=== PATIENT | female | born 2000 | race Caucasian/White ===

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

== ENCOUNTER 2018-11-07 17:11 | Emergency (ER) | payer OTHER ==
[2018-11-07 17:29] VITALS: BP 118/76
--- NOTE | 2018-11-07 18:09 | EDPHY ---
H & P Stated Complaint: BLURRY VISION, FORGETTING TO SPELL,WINKLER, HIT HEAD AND VOMIT-SAT Source: Patient Exam Limitations: No limitations - Personal History LMP (Females 10-55): Extended Cycle BCP/Inj Current Tetanus/Diphtheria Vaccine: Yes - Medical/Surgical History Hx Asthma: No Hx Chronic Respiratory Disease: No Hx Diabetes: No Hx Cardiac Disease: No Hx Renal Disease: No Hx Cirrhosis: No Hx Alcoholism: No Hx HIV/AIDS: No Hx Splenectomy or Spleen Trauma: No Other PMH: ACL SURG, ELBOW SURG, CONCUSSIONS - Social History Smoking Status: Never smoked Time Seen by Provider: 11/07/18 18:01 HPI/ROS: HPI: This is a 18-year-old female who presents with Chief Complaint: BLURRY VISION, FORGETTING TO SPELL,WINKLER, HIT HEAD AND VOMIT-SAT Location: Head Quality: Injury Duration: 48 hr ago Signs and Symptoms: no fever, + nausea, no vomiting, no photophobia, no noise sensitivity, no neck stiffness, no ear pain, no tinnitus, no nasal congestion, no sinus pressure, no weakness, no radiation, no aura, + positive headache Timing: Gradual onset Severity: Moderate Context: Patient is a student at [employer], was drinking alcohol Wednesday evening when she accidentally tripped and fell landing on the right side of her head. This was a witnessed fall by her friend. Denies LOC, dizziness, amnesia, neck pain. Patient reports that she did vomit approximately 3 times that evening. She reports that since that time she has had generalized dull aching headache, forgetting how to spell words, blurry vision. Patient has a history of concussions. Reports poor appetite but drinking fluids. Modifying Factors: None Comment: ROS: A comprehensive 10 system review of systems is otherwise negative aside from elements mentioned in the history of present illness. MEDICAL/SURGICAL/SOCIAL HISTORY: Medical history: Generally healthy. Does not take any regular medications. Nexplanon. History of concussions. Migraine headaches. Surgical history: ACL SURG, ELBOW SURG, Social history: Student at [employer]. Drinks alcohol. Family history noncontributory. CONSTITUTIONAL: Well-developed, well-nourished, young adult white female, awake and alert, no obvious distress HEENT: Atraumatic and normocephalic. NECK: supple, no midline tenderness, flexion 45 degrees, extension 45 degrees, right and left lateral flexion 45 degrees. No meningismus. Cardiovascular: Normal S1/S2, regular rate, regular rhythm, without murmur rub or gallop. PULMONARY/CHEST: Symmetrical and nontender. no crepitus. Clear to auscultation bilaterally. Good air movement. No accessory muscle usage. ABDOMEN: Soft, nondistended, nontender, no ecchymosis. PELVIC: no pain with rocking; bilateral hips flexion 125 degrees, extension 30 degrees, with no pain internal rotation and no pain external rotation. BACK: No midline tenderness, no paraspinous spasm, deep tendon reflexes 2/2, no pain with straight leg raise, No foot drop. Achilles reflexes are equal bilaterally. Able to walk on heels and toes without difficulty. EXTREMITIES: 2/2 pulses, strength 5/5, DIP/PIP/MCP flexion/extension intact with good light touch sensation. no deformities, no clubbing, no cyanosis or edema. NEUROLOGICAL: no focal neuro deficits. GCS 15. Light touch sensation intact. Cranial nerves 2-12 grossly intact. Normal Romberg test. Normal finger-to- nose. Normal [id number]. SKIN: Warm and dry, no erythema. no rash. Good capillary refill. (Nani Bradshaw) Constitutional: Initial Vital Signs Temperature (C) 36.7 C 11/07/18 17:25 Heart Rate 84 11/07/18 17:25 Respiratory Rate 18 11/07/18 17:25 Blood Pressure 118/76 11/07/18 17:25 O2 Sat (%) 99 11/07/18 17:25 O2 Delivery Mode Room Air Allergies/Adverse Reactions: No Known Allergies Allergy (Unverified 11/07/18 17:25) Home Medications: Medication Instructions Recorded Acet/Caffeine/Buta Fioricet 1 each PO Q6 PRN #12 tab 11/07/18 [Fioricet (*)] Nexplanon 11/07/18 Ondansetron Odt [Zofran Odt 4 mg 4 mg PO Q4 PRN #12 tab 11/07/18 (*)] Medical Decision Making ED Course/Re-evaluation: Vital signs reviewed and stable upon arrival. No LOC. No neurological deficits. Based on nexus protocol, CT head not indicated. Patient given referral to the concussion Clinic, school excuse, prescription for Zofran and Fioricet This patient was seen under the supervision of my secondary supervising physician. I evaluated care for this patient independently. Discussed this patient with Dr. Farias who did not see the patient. (Nani Bradshaw) The patient was evaluated and managed by the physician physicians assistant. I have reviewed this chart and I agree with the findings and plan of care as documented , as indicated by my signature. I am the secondary supervising physician. ( Zakiya Farias) Differential Diagnosis: Head injury including but not limited to concussion, skull fracture, intraparenchymal contusion, subarachnoid, subdural and epidural hematoma. (Nani Bradshaw) Departure - Departure Disposition: Home, Routine, Self-Care Clinical Impression: Concussion without loss of consciousness, initial encounter Condition: Good Instructions: Concussion (ED) Additional Instructions: You sustained a closed head injury and concussion and it is recommended that you observe concussion precautions. Please do not participate in any contact sports or moderate and strenuous activity until all symptoms have resolved or cleared by PCP/Concussion Clinic. Take Tylenol 650 mg every 4 hours and/or Ibuprofen 600 mg every 8 hours with food as needed for pain/headache. Take Zofran every 4-6 hours as needed for nausea, vomiting. Take Fioricet every 6-8 hours as needed for headache not relieved by Tylenol or ibuprofen. Consume a minimum of 8-10 glasses of water or electrolyte fluid replacement drinks that include Gatorade, Powerade, Pedialyte. Please follow-up with primary care provider in 5-7 days. If symptoms last longer than 1 week, please follow-up with Dr. Fontana in the concussion Clinic. Return to the ER immediately if you have progressive headaches, neurologic deficits, gait abnormality, visual disturbance, slurred speech, or any other symptom that concerns you. Referrals: [facility],. [Clinic] - As per Instructions Bibiana Fontana MD [Medical Doctor] - As per Instructions Stand Alone Forms: School Excuse Prescriptions: Acet/Caffeine/Buta Fioricet [Fioricet (*)] 1 each PO Q6 PRN #12 tab PRN Reason: Headache Ondansetron Odt [Zofran Odt 4 mg (*)] 4 mg PO Q4 PRN #12 tab PRN Reason: Nausea/Vomiting, Use 1st
== END 2018-11-07 18:22 | disposition home or self-care (01) ==
DX: S06.0X0A Concussion without loss of consciousness, initial encounter (principal); W01.10XA Fall on same level from slipping, tripping and stumbling with subsequent striking against unspecified object, initial encounter